=== PATIENT | female | born 1950 | race Caucasian/White ===

== ENCOUNTER → 2024-02-09 12:51 | Outpatient (REF) | payer MEDICARE, OTHER, SELFPAY | LOC: HWRCS 12:51 | PROVIDERS: ATTENDING PHYSICIAN Internal Medicine Interventional Cardiology; FAMILY PHYSICIAN Nurse Practitioner | DX: R06.09 Other forms of dyspnea (principal) | CPT/HCPCS: 93306 ==

== ENCOUNTER → 2024-02-22 07:57 | Outpatient (REF) | payer MEDICARE, OTHER, SELFPAY | LOC: DHCBC/DCA 07:57 | PROVIDERS: ATTENDING PHYSICIAN Internal Medicine Interventional Cardiology; FAMILY PHYSICIAN Nurse Practitioner | DX: R06.09 Other forms of dyspnea (principal) | CPT/HCPCS: 78452; 93017; A9500 ==

== ENCOUNTER 2024-07-26 12:29 | Emergency (ER) | payer MEDICARE, OTHER, SELFPAY ==
[2024-07-26 12:32] VITALS: BP 124/88
[2024-07-26 12:52] VITALS: BP 103/82; BP 116/78; BP 123/86; PULSE 72; PULSE 77; PULSE 79
--- NOTE | 2024-07-26 12:52 | ED.GENMED ---
History of Present Illness
General
Chief Complaint: Fainting/Passed Out
Source: patient and spouse
Exam Limitations: none
Time Seen by Provider: 07/26/24 12:43
Nursing documentation reviewed up to this point in time: agreed with
History of Present Illness
History of Present Illness:
The patient is a 73-year-old female with a past medical history of high blood pressure who reports that she was at the [facility] doing her typical Rising exercise class this morning and passed out unexpectedly 15 minutes into the class. Patient
reports that she was sitting in a chair while it happened. She reports that he just finished the warm up and denies any rigorous exercise. She denies any associated chest pain, shortness of breath, lightheadedness, or dizziness prior to passing
out. Patient reports that she has no memory of the incident and the only thing she does remember is waking up in the chair with everybody looking at her. Patient denies any history of seizure and there was no witnessed seizure activity. She
denies headache. She reports that she ate breakfast as usual today and denies any recent illnesses such as vomiting, diarrhea or fever. Patient denies bloody and black stool. Patient reports she is never passed out before. Patient reports she
does feel slightly tired now but has no other symptoms. She denies pain anywhere. There was no injury.
Past History
Past History
ED Past Medical History: HTN
ED Past Surgical History: Other
Social History
Tobacco: Non-smoker
Alcohol: Daily
Drug: None
Personal:
Living: with family
Employment: Other
Family History
Family History: Other
Review of Systems
Review of Systems
Allergies reviewed?: Yes
All Other Systems: ROS reviewed and negative except as documented in HPI and ROS
Constitutional: Reports no symptoms
EENT: Reports no symptoms
Respiratory: Reports no symptoms
Cardiac: Reports syncope
ABD/GI: Reports no symptoms
: Reports no symptoms
Musculoskeletal: Reports no symptoms
Skin: Reports no symptoms
Neurological: Reports no symptoms
Endocrine: Reports no symptoms
Hematologic/Lymphatic: Reports no symptoms
Psychiatric: Reports no symptoms
Phy Exam
Physical Exam
Physical Exam:
Physical Exam
General: no apparent distress, not acutely ill. Well appearing
Neck: supple. no meningeal signs. normal psoterior pharynx
Heart: s1/s2 regular rate and rhythm, no murmur. equal radial pulses.
Lungs: no acute respiratory distress. clear bilaterally
Abdomen: normal bowel sounds. not tender. no CVAT
Neuro: alert and oriented. no focal neurological deficits. 5 out of 5 strength in all extremities. Cranial nerves equal and symmetric bilaterally. Answers all questions appropriately.
Skin: no rash
Psychiatric: well kept. interactive and cooperative
Extremities: no edema. no calf tenderness. negative homans. good distal pulses
Course
Orders/Labs/Results
Orders:
Orders
07/26/24 12:39
EKG [Electrocardiogram (*1)] Urgent
Reason for Study: Syncope
EKG- Treatment ONCE
07/26/24 12:41
CBC/With Diff [Complete Blood Count/With Diff] Urgent
CMP [Comprehensive Metabolic Panel] Urgent
07/26/24 12:52
Orthostatic VS- Treatment ONCE
07/26/24 13:11
Troponin I Urgent
Abnormal Lab Results
07/26/24
12:41
MCH 32.3 H pg
(27.0-31.0)
MPV 10.8 H fL
(7.4-10.4)
Absolute Monos (auto) 0.8 H 10^3/uL
(0.1-0.6)
BUN 22 H mg/dl
(7-17)
Glucose 143 H mg/dl
(70-99)
07/26/24 12:41
07/26/24 12:41
Vital Signs
Initial and Last Documented VS:
Initial Vital Signs
Temp Pulse Resp BP Pulse Ox
98.3 F 83 16 124/88 98
07/26/24 12:32 07/26/24 12:32 07/26/24 12:32 07/26/24 12:32 07/26/24 12:32
Last Documented Vital Signs
Temp Pulse Resp BP Pulse Ox
98.3 F 67 13 103/82 99
07/26/24 12:32 07/26/24 13:45 07/26/24 13:45 07/26/24 13:22 07/26/24 13:45
MDM/Problems Addressed
Differential Diagnosis Includes:
Acute cardiac arrhythmia, orthostatic syncope, vasovagal syncope
MDM/Problems Addressed:
Patient presents with an acute syncopal episode and is now completely recovered
*Pulse Oximetry
Patient hypoxic: no
*EKG
Interpreted by ED Provider?: Yes
Interpretation: normal
Comparison EKG: no changes
Rate: normal
Rhythm: sinus
[place]: normal axis
Interval: normal interval
QRS Pattern: normal QRS
Ischemia: no ischemia
*Breastfeeding Educator Interpretation
Rate: normal
Interpretation: normal
Rhythm: sinus
*Critical Care Note
Total Time (30-74mins, 75-104mins- exclusive of procedures): Not Applicable
Data Reviewed
Review of Other/Old Records Reveals: Testing (Cardiac stress test done in February 2024 was normal.)
Source: patient and spouse
Patient Management
Social determinants of health affecting care: Living situation and Strong social support
Escalation/DeEscalation of care consider admission/obs:
Patient remains very well and comfortable appearing. There are no signs of any cardiac arrhythmia on heart monitor. Patient's blood pressure did drop when she sat up, and further dropped when she stood up. Patient's syncopal episode could be
orthostatic in nature, however she never had any lightheadedness. Patient encouraged to drink lots of fluids today. Additionally, I did reach out to [facility], Dr. Taylor to let him know that the patient was encouraged to
call his office for follow-up. Patient told to return immediately with any chest pain or shortness of breath. I did encourage patient to stay for precautionary reasons for a second troponin given that patient had no preceding symptoms such as
lightheadedness prior to the syncopal episode, however, patient adamantly said she wants to go home and feels well and does not want a stay for this. Patient understands that cardiac dysrhythmia or cardiac issue could have caused her syncope.
ED Attending Note
-
Portions of this chart may have been created with voice recognition software.� Occasional wrong word or��sound alike� substitutions may have occurred due to the inherent limitations of voice recognition software.
Discharge Plan
Departure
Patient Disposition: Home (Routine Discharge)
Date of Disposition: 07/26/24
Time of Disposition: 14:29
Patient with high blood pressure during this ER visit?: No
Condition: Good
Covid-19: Not Applicable
Discharge Problem:
Syncope
Instructions: Syncope (Fainting) (DC)
Prescriptions:
No Action
Amlodipine 5 MG
5 mg PO DAILY
cetirizine 10 MG tablet
10 mg PO DAILY
escitalopram oxalate [Lexapro] 5 MG tablet
5 mg PO DAILY
Estradiol Transdermal
0.012 topical WEEKLY
Hgh
4 tab PO DAILY
Progesterone
100 mg PO DAILY
Vitamin C:
500 mg PO DAILY
Referrals:
Amanda Spencer MD [Active] - (Call today to make an appointment to see as soon as possible!)
Taryn Desai DO [Family Provider] -
Activity Restrictions/Additional Instructions:
Stay well-hydrated today by drinking lots of water. Please call Dr. Spencer's office today to schedule an appointment for soon as possible.
Interventions
Interventions:
*Risk Screen - Suicide Last Done: 07/26/24 12:32
*General Assessment Last Done: 07/26/24 12:32
*Neglect/Abuse Screening Last Done: 07/26/24 12:32
*ED COVID-19 Vaccine History Last Done: 07/26/24 12:36
*Nursing Disposition Last Done: 07/26/24 14:41
ED- Cardiac Assessment Last Done: 07/26/24 12:48
ED- Neurological Assessment Last Done: 07/26/24 12:48
Discharge Date and Time
Discharge Date/Time: 07/26/24 14:42
Print Language: UPPER SORBIAN
[2024-07-26 12:56] LABS: % Basophils 0.7 % (0-2); % Eosinophils 0.8 % (0-6); % Immature Granulocytes 0.2 % (0-0.5); % Lymphocytes 40.8 % (20.5-51.1); % Neutrophils 48.5 % (42.2-75.2); Absolute Basophils 0.1 10^3/uL (0-0.2); Absolute Eosinophils 0.1 10^3/uL (0-0.7); Absolute Lymphocytes 3.4 10^3/uL (1.2-3.4); Absolute Monocytes 0.8 10^3/uL (0.1-0.6); Hematocrit 40.4 % (37.0-47.0); Mean Corp Hgb Conc. 34.7 g/dL (33.0-37.0); Mean Corpuscular Hgb 32.3 pg (27.0-31.0); Mean Corpuscular Volume 93.3 fL (81.0-99.0); Mean Platelet Volume 10.8 fL (7.4-10.4); Nucleated Red Blood Cells % 0 %; Platelet Count 247 10^3/uL (130-400); Red Blood Cell Count 4.33 10^6/uL (4.20-5.40); Red Cell Dist. Width 11.7 % (11.5-14.5); White Blood Cell Count 8.3 10^3/uL (4.8-10.8)
[2024-07-26 13:00] VITALS: BP 123/93
[2024-07-26 13:12] LABS: ALT (SGPT) 17 U/L (0-35); AST (SGOT) 22 U/L (14-36); Albumin 4.2 g/dl (3.5-5.0); Alkaline Phosphatase 82 U/L (38-126); Blood Urea Nitrogen 22 mg/dl (7-17); Calcium 9.6 mg/dl (8.4-10.2); Carbon Dioxide 27 mmol/L (22-30); Chloride 102 mmol/L (98-107); Estimated Creatinine Clearance 63 ml/min; Glucose 143 mg/dl (70-99); Potassium 4.1 mmol/L (3.5-5.1); Sodium 141 mmol/L (135-145); Total Bilirubin 0.4 mg/dl (0.2-1.3); Total Protein 7.1 g/dl (6.3-8.2); eGFR > 60.00
[2024-07-26 13:19] VITALS: BP 123/86
[2024-07-26 13:21] VITALS: BP 116/78
[2024-07-26 13:22] VITALS: BP 103/82
[2024-07-26 13:49] LABS: Troponin I < 0.012 ng/ml
== END 2024-07-26 14:42 | disposition home or self-care (01) ==
LOC: EMR 12:29
PROVIDERS: EMERGENCY PHYSICIAN Emergency Medicine; FAMILY PHYSICIAN Internal Medicine
DX: R55 Syncope and collapse (principal); I10 Essential (primary) hypertension
CPT/HCPCS: 99284; 80053; 84484; 85025; 93005

== ENCOUNTER → 2024-11-26 14:38 | Outpatient (REF) | payer MEDICARE, OTHER, SELFPAY | LOC: HWWDC 14:38 | PROVIDERS: ATTENDING PHYSICIAN Internal Medicine | DX: Z12.31 Encounter for screening mammogram for malignant neoplasm of breast (principal) | CPT/HCPCS: 77063; 77067 ==

== ENCOUNTER → 2024-12-30 10:18 | Outpatient (REF) | payer MEDICARE, OTHER, SELFPAY | LOC: HWRAD 10:18 | PROVIDERS: ATTENDING PHYSICIAN Nurse Practitioner Family; FAMILY PHYSICIAN Internal Medicine | DX: R05.1 Acute cough (principal) | CPT/HCPCS: 71046 ==